=== PATIENT | male | born 1940 | race Two or more races ===

== ENCOUNTER 2024-04-12 11:15 | Inpatient (IN) | payer OTHER ==
[~2024-04-12] VITALS: Ht 170.2 cm; Wt 73.5 kg
[2024-04-12] MEDS ORDERED: TENORMIN50 M1 PO (12:35)
[2024-04-12] MEDS ORDERED: TAMS0.4C PO (12:35)
[2024-04-12] MEDS ORDERED: HYDRODIURIL12.5 MG PO (12:35)
[2024-04-12] MEDS ORDERED: SIMVASTATIN40 MG PO (12:35)
[2024-04-12] MEDS ORDERED: CAPTOPRIL50 MG PO (12:36)
[2024-04-16] MEDS ORDERED: METRONIDAZOLE/SODIUM CHLORIDE 500 MG/100 ML PIGGYBACK IV ONE (10:21)
[2024-04-16] MEDS ORDERED: CEFTRIAXONE SODIUM 2,000 MG VIAL ONE (10:21)
[2024-04-16] MEDS ORDERED: SUGAMMADEX SODIUM 200 MG/2 ML VIAL IV ONE (14:13)
[2024-04-16] MEDS ORDERED: MORPHINE SULFATE 4 MG/ML CARTRIDGE IV PRN (14:15)
[2024-04-16] MEDS ORDERED: DEXTROSE 50 % IN WATER 0.5 G/ML DISP.SYRIN IV PRN (14:15)
[2024-04-16] MEDS ORDERED: ONDANSETRON HCL 2 MG/ML VIAL IV PRN (14:15)
[2024-04-16] MEDS ORDERED: OxyCODONE HCL 5 MG TABLET (ROXICODONE) PO PRN (14:15)
[2024-04-16] MEDS ORDERED: RINGERS SOLUTION,LACTATED 1,000 ML IV SCH (14:15)
[2024-04-16] MEDS ORDERED: HYOSCYAMINE SULFATE 0.125 MG TAB.SUBL SL SCH (17:00)
[2024-04-16] MEDS ORDERED: POLYETHYLENE GLYCOL 3350 17 GM BLIST.PACK PO SCH (17:00)
[2024-04-16] MEDS ORDERED: GABAPENTIN 300 MG CAPSULE PO SCH (17:00)
[2024-04-16] MEDS ORDERED: ACETAMINOPHEN 500 MG GEL..CAP PO SCH (20:00)
[2024-04-16] MEDS ORDERED: FAMOTIDINE/PF 20 MG/2 ML VIAL IV PUSH SCH (21:00)
[2024-04-17 08:24] LABS: HEMATOCRIT 35.6 % (39.0-48.0); HEMOGLOBIN 11.8 g/dL (13-16.00); MEAN CELL VOLUME 77.6 fL (80.0-100.00); MEAN CORPUSCULAR HEMOGLOBIN 25.7 pg (27.00-32.0); MEAN CORPUSCULAR HGB CONC 33.1 g/dl (32.0-36.0); PLATELET COUNT 161 K/uL (150-450); RED BLOOD COUNT 4.59 M/uL (4.00-6.00); RED CELL DISTRIBUTION WIDTH 23.9 % (11.5-14.5)
[2024-04-17] MEDS ORDERED: CAPTOPRIL 50 MG TABLET PO SCH (09:00)
[2024-04-17] MEDS ORDERED: TAMSULOSIN HCL 0.4 MG CAP PO SCH (09:00)
[2024-04-17] MEDS ORDERED: HYDROCHLOROTHIAZIDE 12.5 MG CAPSULE PO SCH (09:00)
[2024-04-17] MEDS ORDERED: ATENOLOL 50 MG TABLET PO SCH (09:00)
[2024-04-17 09:29] LABS: ALBUMIN 2.6 gm/dL (3.4-5.0); CALCIUM 8.3 mg/dL (8.5-10.1); CREATININE SERUM 0.76 mg/dL (0.70-1.30); GFR 97.71; MAGNESIUM 1.9 mg/dL (1.8-2.4); PHOSPHOROUS 2.5 mg/dL (2.5-4.9)
[2024-04-17 09:31] LABS: POTASSIUM 2.56 mEq/L (3.5-5.1)
[2024-04-17] MEDS ORDERED: POTASSIUM CHLORIDE IN WATER 100 ML IV ONE (11:00)
[2024-04-17] MEDS ORDERED: POTASSIUM CHLORIDE IN WATER 100 ML IV SCH (13:00)
[2024-04-17] MEDS ORDERED: AMINO ACIDS 1 EACH TABLET PO SCH (13:00)
[2024-04-17] MEDS ORDERED: ENOXAPARIN SODIUM 40 MG/0.4 ML SYRINGE SUBCUTANEO SCH (17:00)
[2024-04-18 07:43] LABS: CALCIUM 8.5 mg/dL (8.5-10.1); CREATININE SERUM 0.79 mg/dL (0.70-1.30); GFR 93.44; POTASSIUM 3.03 mEq/L (3.5-5.1)
[2024-04-18] MEDS ORDERED: ENOXAPARIN SODIUM 40 MG/0.4 ML SYRINGE SUBCUTANEO SCH (09:00)
[2024-04-18] MEDS ORDERED: POTASSIUM CHLORIDE 8 MEQ TABLET PO SCH (13:00)
[2024-04-19] MEDS ORDERED: PERCOCET 5-3251 EACH PO (09:49)
[2024-04-19] MEDS ORDERED: NEURONTIN300 MG PO (09:49)
== END 2024-04-19 14:53 | disposition home or self-care (01) | DRG 330 ==
LOC: O/R 04-16 07:10 → SURH 04-16 10:00 → SURG 04-16 15:17 → SURH 04-16 17:37
PROVIDERS: Surgery; ADMIT Surgery; ATTEND Surgery
PROC: 07BB4ZZ Excision of Mesenteric Lymphatic, Percutaneous Endoscopic Approach (ICD-10-PCS; 2024-04-16)
PROC: 0DJD8ZZ Inspection of Lower Intestinal Tract, Via Natural or Artificial Opening Endoscopic (ICD-10-PCS; 2024-04-16)
PROC: 0D1N4Z4 Bypass Sigmoid Colon to Cutaneous, Percutaneous Endoscopic Approach (ICD-10-PCS; principal; 2024-04-16 10:00)
DX: C18.7 Malignant neoplasm of sigmoid colon (principal); C78.6 Secondary malignant neoplasm of retroperitoneum and peritoneum; K55.1 Chronic vascular disorders of intestine; K56.609 Unspecified intestinal obstruction, unspecified as to partial versus complete obstruction; K62.5 Hemorrhage of anus and rectum; R59.0 Localized enlarged lymph nodes; Z43.3 Encounter for attention to colostomy; I10 Essential (primary) hypertension; E78.5 Hyperlipidemia, unspecified

== ENCOUNTER 2024-07-16 19:42 | Inpatient (IN) | payer OTHER ==
[~2024-07-16] VITALS: Ht 170.2 cm; Wt 72.1 kg
[~2024-07-16 19:42] MED LIST: CAPTOPRIL50 MG PO; HYDRODIURIL12.5 MG PO; NEURONTIN300 MG PO; PERCOCET 5-3251 EACH PO; SIMVASTATIN40 MG PO; TAMS0.4C PO; TENORMIN50 M1 PO
--- NOTE | 2024-07-16 21:02 | NUR ---
PACIENTE ALERTA Y ORIENTADO X 3. REFIERE LE REALIZARON JAYDEN COLOSTOMIA EN TANIKA POR DR Mayela MONTAGUE Y EN LA MANANA DE COREY SE PERCATARON DE QUE TENIA ALGO QUE ENTIENDEN ES EL INTESTINO EN LA BOLSA DE LA COLOSTOMIA. PACIENTE CON LEG GIRON PATENTE A GRAVEDAD CON ORINA AMARILLO ANN.
[2024-07-16] MEDS ORDERED: PROSCAR5 MG PO (21:07)
[2024-07-16] MEDS ORDERED: KETOROLAC TROMETHAMINE 60 MG VIAL IM ONE (22:15)
--- NOTE | 2024-07-16 22:33 | NUR ---
SE EJECUTAN ORDENES MEDICAS EN IYER TOTALIDAD
[2024-07-16 23:17] LABS: HEMATOCRIT 40.3 % (39.0-48.0); HEMOGLOBIN 13.6 g/dL (13-16.00); MEAN CELL VOLUME 86.6 fL (80.0-100.00); MEAN CORPUSCULAR HEMOGLOBIN 29.1 pg (27.00-32.0); MEAN CORPUSCULAR HGB CONC 33.7 g/dl (32.0-36.0); PLATELET COUNT 189 K/uL (150-450); RED BLOOD COUNT 4.65 M/uL (4.00-6.00)
[2024-07-16 23:31] LABS: ALBUMIN 3.5 gm/dL (3.4-5.0); BILIRUBIN TOTAL 0.47 mg/dL (0.3-1.2); CALCIUM 9.4 mg/dL (8.5-10.1); CREATININE SERUM 1.01 mg/dL (0.70-1.30); GFR 70.38; GLOBULINA 3.6 G/DL (2.4-3.5); POTASSIUM 3.98 mEq/L (3.5-5.1); TOTAL PROTEIN 7.1 gm/dL (6.4-8.2)
[2024-07-16 23:46] LABS: RED CELL DISTRIBUTION WIDTH 17.5 % (11.5-14.5)
[2024-07-16 23:56] LABS: INR 1.09; PROTHROMBIN TIME 11.8 SECONDS (9.0-11.5)
[2024-07-17] MEDS ORDERED: MORPHINE SULFATE 4 MG/ML VIAL IV PRN (08:30)
[2024-07-17] MEDS ORDERED: DEXTROSE 5 %-0.45 % SOD CHLORD 1,000 ML IV SCH (08:30)
[2024-07-17] MEDS ORDERED: ENOXAPARIN SODIUM 40 MG/0.4 ML SYRINGE SUBCUTANEO SCH (09:00)
[2024-07-17 10:08] VITALS: BP 119/55
[2024-07-17] MEDS ORDERED: PIPERACILLIN/TAZOBACTAM SODIUM 3.375 GM VIAL IV SCH (12:00)
[2024-07-17 16:38] VITALS: BP 150/79; O2SAT 98
[2024-07-18 02:05] VITALS: BP 80/50; O2SAT 96
[2024-07-18 19:44] VITALS: BP 149/85; O2SAT 96
[2024-07-19 01:26] VITALS: BP 100/51; O2SAT 99
[2024-07-19 01:53] LABS: PH,URINE 6.5 (5.0-8.0); URINE APPEARANCE Clear; URINE BILIRRUBIN Negative (NEGATIVE); URINE BLOOD Negative; URINE COLOR Yellow; URINE GLUCOSE Negative (NEGATIVE); URINE KETONE Negative (NEGATIVE); URINE LEUKOCYTE Moderate; URINE NITRATE Negative; URINE PROTEIN Negative (NEGATIVE); URINE UROBILINOGEN 0.2 E.U./dl
[2024-07-19 01:56] LABS: URINE BACTERIA 379.1 uL (0.0-1933); URINE EPITHELIAL CELLS 8.6 uL (0.0-38.8); URINE RBC 8.8 uL (0.0-20.8); URINE WBC 25.3 uL (0.0-23.2)
[2024-07-19 01:57] LABS: URINE CAST 0.76 uL (0.0-1.40)
[2024-07-19 09:34] VITALS: BP 138/73; O2SAT 96
[2024-07-19] MEDS ORDERED: CEFTRIAXONE SODIUM 2,000 MG VIAL IV ONE ×2 (13:00→17:15)
[2024-07-19] MEDS ORDERED: METRONIDAZOLE/SODIUM CHLORIDE 500 MG/100 ML PIGGYBACK IV ONE ×2 (13:00→17:15)
[2024-07-19] MEDS ORDERED: LIDOCAINE HCL 1%/EPINEPHRINE 20ML VIAL IJ ONE ×2 (13:00→17:15)
[2024-07-19] MEDS ORDERED: BUPIVACAINE HCL 30 ML VIAL IJ ONE ×2 (13:00→17:15)
[2024-07-19] MEDS ORDERED: ADENOSINE 3 MG/ML VIAL IV ONE (17:15)
[2024-07-19] MEDS ORDERED: DEXTROSE 50 % IN WATER 0.5 G/ML DISP.SYRIN IV PRN (17:30)
[2024-07-19] MEDS ORDERED: ONDANSETRON HCL 2 MG/ML VIAL IV PRN (17:30)
[2024-07-19] MEDS ORDERED: RINGERS SOLUTION,LACTATED 1,000 ML IV SCH (17:30)
[2024-07-19] MEDS ORDERED: MORPHINE SULFATE 4 MG/ML CARTRIDGE IV PRN (17:30)
[2024-07-19] MEDS ORDERED: HYOSCYAMINE SULFATE 0.125 MG TAB.SUBL SL PRN (17:45)
[2024-07-19] MEDS ORDERED: MORPHINE SULFATE 2 MG/ML CARTRIDGE IV ONE (18:45)
[2024-07-19] MEDS ORDERED: ACETAMINOPHEN 500 MG GEL..CAP PO SCH (20:00)
[2024-07-19 21:27] LABS: HEMATOCRIT 37.8 % (39.0-48.0); HEMOGLOBIN 12.8 g/dL (13-16.00); MEAN CELL VOLUME 86.4 fL (80.0-100.00); MEAN CORPUSCULAR HEMOGLOBIN 29.3 pg (27.00-32.0); MEAN CORPUSCULAR HGB CONC 33.9 g/dl (32.0-36.0); PLATELET COUNT 140 K/uL (150-450); RED BLOOD COUNT 4.38 M/uL (4.00-6.00); RED CELL DISTRIBUTION WIDTH 18.3 % (11.5-14.5)
[2024-07-19 21:51] LABS: ALBUMIN 2.5 gm/dL (3.4-5.0); CALCIUM 8.1 mg/dL (8.5-10.1); CREATININE SERUM 0.75 mg/dL (0.70-1.30); GFR 99.22; MAGNESIUM 1.6 mg/dL (1.8-2.4); PHOSPHOROUS 3.1 mg/dL (2.5-4.9); POTASSIUM 3.44 mEq/L (3.5-5.1)
[2024-07-19 22:48] VITALS: BP 135/66; O2SAT 97
[2024-07-20] MEDS ORDERED: GABAPENTIN 300 MG CAPSULE PO SCH (01:00)
[2024-07-20 02:54] VITALS: BP 136/68; O2SAT 96
[2024-07-20 08:53] VITALS: BP 126/67; O2SAT 97
[2024-07-20] MEDS ORDERED: PANTOPRAZOLE SODIUM 40 MG/VIAL VIAL IV SCH (09:00)
[2024-07-20] MEDS ORDERED: LACTOBACILLUS ACIDOPHILUS 1 CAP CAP PO SCH (09:00)
[2024-07-20 09:50] LABS: HEMATOCRIT 37.6 % (39.0-48.0); HEMOGLOBIN 12.8 g/dL (13-16.00); MEAN CELL VOLUME 86.4 fL (80.0-100.00); MEAN CORPUSCULAR HEMOGLOBIN 29.4 pg (27.00-32.0); MEAN CORPUSCULAR HGB CONC 34.1 g/dl (32.0-36.0); PLATELET COUNT 139 K/uL (150-450); RED BLOOD COUNT 4.35 M/uL (4.00-6.00); RED CELL DISTRIBUTION WIDTH 17.3 % (11.5-14.5)
[2024-07-20 11:07] LABS: ALBUMIN 2.6 gm/dL (3.4-5.0); CALCIUM 8.3 mg/dL (8.5-10.1); CREATININE SERUM 0.88 mg/dL (0.70-1.30); GFR 82.5; MAGNESIUM 1.8 mg/dL (1.8-2.4); PHOSPHOROUS 2.9 mg/dL (2.5-4.9); POTASSIUM 3.65 mEq/L (3.5-5.1)
[2024-07-20 18:32] VITALS: BP 134/71
[2024-07-21 03:02] VITALS: BP 118/67; O2SAT 95
[2024-07-21] MEDS ORDERED: ENOXAPARIN SODIUM 40 MG/0.4 ML SYRINGE SUBCUTANEO SCH (09:00)
[2024-07-21 10:42] VITALS: BP 143/83; O2SAT 97
[2024-07-21 17:55] VITALS: BP 133/67
[2024-07-21] MEDS ORDERED: TAMSULOSIN HCL 0.4 MG CAP PO SCH (21:00)
[2024-07-22 02:32] VITALS: BP 111/62; O2SAT 95
[2024-07-22 06:14] LABS: HEMATOCRIT 37.6 % (39.0-48.0); HEMOGLOBIN 12.5 g/dL (13-16.00); MEAN CELL VOLUME 87.7 fL (80.0-100.00); MEAN CORPUSCULAR HEMOGLOBIN 29.1 pg (27.00-32.0); MEAN CORPUSCULAR HGB CONC 33.2 g/dl (32.0-36.0); PLATELET COUNT 168 K/uL (150-450); RED BLOOD COUNT 4.28 M/uL (4.00-6.00)
[2024-07-22 06:51] LABS: CALCIUM 8.6 mg/dL (8.5-10.1); CREATININE SERUM 0.95 mg/dL (0.70-1.30); GFR 75.53; MAGNESIUM 1.8 mg/dL (1.8-2.4); POTASSIUM 3.82 mEq/L (3.5-5.1)
[2024-07-22 09:39] VITALS: BP 115/65; BP 123/74; O2SAT 100; O2SAT 98
[2024-07-22] MEDS ORDERED: APIXABAN 5 MG TABLET PO SCH (17:00)
[2024-07-22 18:44] VITALS: BP 145/77
[2024-07-23 01:30] VITALS: BP 136/70; O2SAT 97
[2024-07-23 10:29] VITALS: BP 121/63; O2SAT 97
[2024-07-23] MEDS ORDERED: ELIQUIS5 MG PO ×2 (11:11→11:13)
[2024-07-23] MEDS ORDERED: INTESTINEX680 M1 PO (11:11)
[2024-07-23] MEDS ORDERED: A/F PAIN RELIE500 MG PO (11:12)
[2024-07-23] MEDS ORDERED: NEURONTIN300 MG PO (11:12)
== END 2024-07-23 12:09 | disposition home or self-care (01) | DRG 330 ==
LOC: ER 19:44 → MEDJ 07-17 08:41 → SEC-K 07-17 08:41 → MEDJ 07-18 08:16
PROVIDERS: General Practice; Internal Medicine Geriatric Medicine; Surgery; ADMIT Surgery; ATTEND Surgery
PROC: 4A12X4Z Monitoring of Cardiac Electrical Activity, External Approach (ICD-10-PCS; 2024-07-19)
PROC: 0DQM0ZZ Repair Descending Colon, Open Approach (ICD-10-PCS; principal; 2024-07-19 16:15)
PROC: B24BZZZ Ultrasonography of Heart with Aorta (ICD-10-PCS; 2024-07-20)
DX: K94.09 Other complications of colostomy (principal); I48.20 Chronic atrial fibrillation, unspecified; I97.89 Other postprocedural complications and disorders of the circulatory system, not elsewhere classified; I10 Essential (primary) hypertension; E78.5 Hyperlipidemia, unspecified